=== PATIENT | male | born 1930 | race Caucasian/White ===

== ENCOUNTER 2017-11-20 08:09 | Emergency (ER) | payer OTHER ==
[~2017-11-20] VITALS: Ht 175.3 cm; Wt 86.2 kg
--- NOTE | ~2017-11-20 | EKG ---
[place] [address] [facility] [place] [address] ELECTROCARDIOGRAM REPORT Name: KEREN TAM [id number] Admission: 11/20/17 Attend Phys: Discharge: 11/20/17 Date of : [birth year] Report #: [id number] THIS REPORT FOR: //name// [facility] ED Test Date: 2017-11-20 Test Time: 08:45:54 Pat Name: KEREN TAM Department: Room: Gender: M Front Desk Admin: [facility] : 1930 Requested By: Rina Beckham Order Number: [id number] MD: Pola Gore Measurements Intervals [place] Rate: 77 P: 36 ID: 235 QRS: -10 QRSD: 92 T: 32 QT: 402 QTc: 455 Interpretive Statements Sinus rhythm Atrial premature complex Prolonged ID interval Compared to ECG 06/12/1990 06:57:00 Atrial premature complex(es) now present First degree AV block now present Electronically Signed On 11-20-2017 15:14:45 [employer]IN[employer] by Pola Gore [email or web address] <ELECTRONICALLY SIGNED> By: Pola Gore MD 11/20/17 1514 Pola Gore MD /ANKIT
[~2017-11-20 08:09] MED LIST: AUGMENTIN 875875 M1 PO; CARBIDOPA-LEVO1 EAC2 PO; CARBIDOPA-LEVO1 EAC3 PO; CARBIDOPA-LEVO1 EAC6 PO; CARBIDOPA-LEVO1 EAC9 PO; CYMBALTA60 MG; CYMBALTA60 MG PO; DOXYCYCLINE 10100 M1 PO; MAVIK2 MG PO; MIRALAX255 GM; MIRAPEX0.75 MG PO; VITAMIN B-12100 MCG PO; XANAX 0.5 MG0.5 M1 PO
[2017-11-20 08:28] LABS: ABSOLUTE NEUTROPHILS 4.1 thou/uL (1.4-8.2); BASOPHILS 0.8 % (0.0-2.0); EOSINOPHILS 0.9 % (0.0-3.0); HEMATOCRIT 42.9 % (42.0-52.0); HEMOGLOBIN 14.6 gm/dL (14.0-18.0); LYMPHOCYTES 20.2 % (24.0-44.0); MCHC 34.1 g/dL (28.0-37.0); MONOCYTES 11.6 % (1.0-8.0); PLATELET COUNT 232 thou/uL (150-400); POLYS 66.5 % (36.0-66.0); RBC 4.71 mil/uL (4.50-6.00); RDW 13.7 % (10.5-14.5); WBC 6.2 thou/uL (4.0-11.0)
[2017-11-20 08:37] LABS: ANION GAP 8 mmol/L (7-16); BUN 14 mg/dL (7-18); CHLORIDE 104 mmol/L (98-107); CO2 30 mmol/L (21-32); CREATININE 0.8 mg/dL (0.7-1.3); GLUCOSE 102 mg/dL (74-106); POTASSIUM 3.8 mmol/L (3.5-5.1); SODIUM 142 mmol/L (136-145)
[2017-11-20 08:46] LABS: TROPONIN-I < 0.04 ng/mL (<0.06)
[2017-11-20 09:11] LABS: URINE BILIRUBIN NEGATIVE (Negative); URINE BLOOD NEGATIVE (Negative); URINE CLARITY CLEAR; URINE COLOR YELLOW; URINE GLUCOSE-RANDOM* NEGATIVE (Negative); URINE KETONES TRACE (Negative); URINE LEUKOCYTES NEGATIVE (Negative); URINE NITRITE NEGATIVE (Negative); URINE PROTEIN (DIPSTICK) TRACE (Negative); URINE UROBILINOGEN 0.2 E.U./dl (0.2-1.0)
[2017-11-20] MEDS ORDERED: FLONASE 0.05%50 MCG NASAL (09:33)
[2017-11-20 10:50] VITALS: BP 166/89
[2018-04-23] MEDS ORDERED: LEVAQUIN 500 M500 M3 PO (17:58)
[2018-04-23] MEDS ORDERED: TYLENOL325 MG PO (17:58)
[2018-04-23] MEDS ORDERED: ENOXAPARIN40 MG/0.1 SUBQ (17:58)
[2018-04-23] MEDS ORDERED: IPRAT-ALBUT 0.5-3 ML INH (17:58)
[2018-04-23] MEDS ORDERED: MUCINEX600 MG PO (17:58)
[2018-04-24] MEDS ORDERED: NUPLAZID17 MG PO (15:49)
[2018-04-29] MEDS ORDERED: SINEMET 25-1001 EAC1 PO ×2 (17:28→17:29)
[2018-04-29] MEDS ORDERED: MIRAPEX 0.250.25 M1 PO (17:59)
[2018-04-29] MEDS ORDERED: LINZESS290 MCG PO (18:05)
[2018-04-29] MEDS ORDERED: SERTRALINE HCL50 MG (18:05)
[2018-04-29] MEDS ORDERED: NEXIUM40 MG PO ×2 (18:13→18:30)
[2018-04-29] MEDS ORDERED: SEROQUEL 25 MG25 M1 PO ×2 (18:16→18:33)
[2018-04-29] MEDS ORDERED: SENNA8.6 MG PO (18:31)
[2018-04-29] MEDS ORDERED: ONDANSETRON HCL4 M2 PO (18:32)
[2018-05-10] MEDS ORDERED: CARBIDOPA-LEVO1 EAC9 PO (08:42)
[2018-05-10] MEDS ORDERED: SINEMET CR 25-1 EACH PO (08:42)
[2018-05-10] MEDS ORDERED: FLONASE 0.05%50 MCG NASAL (08:42)
[2018-05-10] MEDS ORDERED: VENTOLIN HFA 1818 GM INH (08:42)
[2018-05-10] MEDS ORDERED: SEROQUEL 25 MG25 M1 PO (08:42)
[2018-05-10] MEDS ORDERED: COLACE100 MG PO (08:42)
== END 2017-11-20 10:50 | disposition home or self-care (01) ==
LOC: ER 08:09
PROVIDERS: Emergency Medicine
DX: J34.89 Other specified disorders of nose and nasal sinuses (principal); R68.2 Dry mouth, unspecified; I10 Essential (primary) hypertension; G20 Parkinson's disease; N40.0 Benign prostatic hyperplasia without lower urinary tract symptoms

== ENCOUNTER 2017-12-13 09:57 | Inpatient (IN) | payer OTHER ==
[~2017-12-13] VITALS: Ht 180.3 cm; Wt 79.4 kg
--- NOTE | ~2017-12-13 | HC ---
[facility] [place] [address] CONSULTATION Name: ANELVELIZ HECTOR Room #: 430-P [facility] IN M.R.#: [id number] Admission: 12/13/17 Attend Phys: Geoff Perez MD Discharge: 12/14/17 Date of : [birth year] Report #: [id number] THIS REPORT FOR: //name// CC: Geoff Roa DATE OF SERVICE: 12/13/2017 HISTORY OF PRESENT ILLNESS: This is an 87-year-old male patient who is not able to provide any reliable history. This patient has Parkinson's disease. He has seen Dr. Villagran at [facility]. They have managed his Parkinson disease. They recently referred this patient to Dr. Nieto who is a movement disorder specialist at [facility]. They did Botox shot for excessive salivation. The patient has developed delusions where he stands sometime multiple hours thinking something is wrong with his nose. He has done multiple procedures in that regard. He also developed some hallucination. He was given some medication which has made him somewhat better. Family did notice that much, but on examination, it looks like this patient has pretty profound memory deficit. REVIEW OF SYSTEMS: Positive for Parkinson disease. He does have a history of hypertension and BPH. He has developed what looks like pretty significant hallucinations. This was his relevant 14-point review of system. PAST MEDICAL HISTORY: Positive for Parkinson disease. FAMILY HISTORY: Negative for early age stroke. SOCIAL HISTORY: Does not smoke or drink any alcohol. PHYSICAL EXAMINATION: Indicate he does not know what month it is. He does not know what day it is. He does not know what hospital he is in. His speech looks okay, but memory and fund of knowledge is very poor. Cranial nerve examination 2-12 is unremarkable. He does have some stiffness in all 4 extremities. His neuromuscular examination is symmetrical. There is no carotid bruit or meningeal sign. He is a reasonably well-developed individual who does not have any dysmorphic features of eyes, ears and face and his pulses are difficult to feel. He has no edema, cyanosis or jaundice. Cardiac examination is unremarkable. His blood pressure is 170/83, respirations 18, pulse is 72, temperature 98.4. His white count is normal at 6.3. He did have a CT scan, which was unremarkable. 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 I suspect his delusion [address] [place] [address] CONSULTATION Name: KEREN TAM [facility] Room #: 430-P [facility] IN M.R.#: [id number] Admission: 12/13/17 Attend Phys: Geoff Perez MD Discharge: 12/14/17 Date of : [birth year] Report #: [id number] and hallucinations are because of that. RECOMMENDATIONS: 1. I will suggest a psychiatric consult. 2. I discussed with the family that the medication they will use to control his hallucination and delusion will make his Parkinson worse. He appeared to be in pretty advanced stage of dementia clinically. I agree with the physical therapy and occupational therapy and we will see how he does with that. Thank you very much for allowing me to share in the management of this patient and if you have any questions, please feel free to contact me. <ELECTRONICALLY SIGNED> By: Gerald Nicole MD 12/18/17 0721 [id number] Gerald Nicole MD /nt
[~2017-12-13 09:57] MED LIST changes: +FLONASE 0.05%50 MCG NASAL
[2017-12-13 09:58] VITALS: BP 171/89
[2017-12-13 10:13] LABS: HEMATOCRIT 43.8 % (42.0-52.0); HEMOGLOBIN 14.7 gm/dL (14.0-18.0); MCH 30.6 pg (26.0-34.0); MCHC 33.5 g/dL (28.0-37.0); MCV 91.2 fL (80.0-100.0); RBC 4.8 mil/uL (4.50-6.00); RDW 13.9 % (10.5-14.5); WBC 6.3 thou/uL (4.0-11.0)
[2017-12-13 10:19] LABS: CALCIUM 9.4 mg/dL (8.5-10.1); CREATININE 0.8 mg/dL (0.7-1.3); POTASSIUM 4.1 mmol/L (3.5-5.1)
[2017-12-13] MEDS ORDERED: LINZESS290 MCG PO (10:33)
[2017-12-13] MEDS ORDERED: SERTRALINE HCL50 MG PO (10:34)
[2017-12-13] MEDS ORDERED: NEXIUM40 MG PO (10:34)
[2017-12-13] MEDS ORDERED: ENULOSE10 GM/15 M PO (10:35)
[2017-12-13] MEDS ORDERED: SENOKOT-S1 TA2 PO (10:35)
[2017-12-13] MEDS ORDERED: NUPLAZID17 MG PO (10:37)
[2017-12-13] MEDS ORDERED: SCOPOLAMINE1 EACH TRANSDERM (10:38)
[2017-12-13] MEDS ORDERED: SEROQUEL 25 MG25 M1 PO (10:39)
[2017-12-13 11:09] LABS: URINE BILIRUBIN NEGATIVE (Negative); URINE BLOOD NEGATIVE (Negative); URINE CLARITY CLEAR; URINE COLOR YELLOW; URINE GLUCOSE-RANDOM* NEGATIVE (Negative); URINE KETONES TRACE (Negative); URINE LEUKOCYTES-REFLEX NEGATIVE (Negative); URINE NITRITE-REFLEX NEGATIVE (Negative); URINE PROTEIN (DIPSTICK) NEGATIVE (Negative); URINE UROBILINOGEN 0.2 E.U./dl (0.2-1.0)
[2017-12-13 11:18] LABS: AMP/METHAMP Negative (Negative); BARBITURATES Negative (Negative); BENZODIAZEPINES Negative (Negative); COCAINE Negative (Negative); METHADONE Negative (Negative); OPIATES Negative (Negative); PCP Negative (Negative)
[2017-12-13 13:52] VITALS: BP 186/93
[2017-12-13 16:00] VITALS: BP 191/86
[2017-12-13 19:20] VITALS: BP 170/83
[2017-12-13 20:18] LABS: TSH 3.963 uIU/mL (0.358-3.740)
[2017-12-14 05:27] VITALS: BP 127/70
[2017-12-14 07:43] VITALS: BP 142/75
[2017-12-14 09:30] VITALS: BP 142/75
[2017-12-14] MEDS ORDERED: SERTRALINE HCL50 MG PO (14:47)
[2017-12-14] MEDS ORDERED: SEROQUEL 25 MG25 M1 PO (14:48)
[2017-12-14] MEDS ORDERED: CARBIDOPA-LEVO1 EAC9 PO (14:49)
[2017-12-14] MEDS ORDERED: B12INJ PO (14:49)
[2017-12-14 15:20] VITALS: BP 132/48
[2018-04-23] MEDS ORDERED: MUCINEX600 MG PO (17:58)
[2018-04-23] MEDS ORDERED: LEVAQUIN 500 M500 M3 PO (17:58)
[2018-04-23] MEDS ORDERED: ENOXAPARIN40 MG/0.1 SUBQ (17:58)
[2018-04-23] MEDS ORDERED: TYLENOL325 MG PO (17:58)
[2018-04-23] MEDS ORDERED: IPRAT-ALBUT 0.5-3 ML INH (17:58)
[2018-04-24] MEDS ORDERED: NUPLAZID17 MG PO (15:49)
[2018-04-29] MEDS ORDERED: SINEMET 25-1001 EAC1 PO ×2 (17:28→17:29)
[2018-04-29] MEDS ORDERED: MIRAPEX 0.250.25 M1 PO (17:59)
[2018-04-29] MEDS ORDERED: LINZESS290 MCG PO (18:05)
[2018-04-29] MEDS ORDERED: SERTRALINE HCL50 MG (18:05)
[2018-04-29] MEDS ORDERED: NEXIUM40 MG PO ×2 (18:13→18:30)
[2018-04-29] MEDS ORDERED: SEROQUEL 25 MG25 M1 PO ×2 (18:16→18:33)
[2018-04-29] MEDS ORDERED: SENNA8.6 MG PO (18:31)
[2018-04-29] MEDS ORDERED: ONDANSETRON HCL4 M2 PO (18:32)
[2018-05-10] MEDS ORDERED: COLACE100 MG PO (08:42)
[2018-05-10] MEDS ORDERED: SEROQUEL 25 MG25 M1 PO (08:42)
[2018-05-10] MEDS ORDERED: VENTOLIN HFA 1818 GM INH (08:42)
[2018-05-10] MEDS ORDERED: CARBIDOPA-LEVO1 EAC9 PO (08:42)
[2018-05-10] MEDS ORDERED: FLONASE 0.05%50 MCG NASAL (08:42)
[2018-05-10] MEDS ORDERED: SINEMET CR 25-1 EACH PO (08:42)
== END 2017-12-14 16:38 | DRG 71 ==
LOC: ER 09:57 → 4E 11:46 → EROBS 11:46 → 4E 15:34
PROVIDERS: Emergency Medicine; Psychiatry & Neurology Neuromuscular Medicine
DX: G93.40 Encephalopathy, unspecified (principal); R44.3 Hallucinations, unspecified; I10 Essential (primary) hypertension; G20 Parkinson's disease; N40.0 Benign prostatic hyperplasia without lower urinary tract symptoms; R68.2 Dry mouth, unspecified; F02.80 Dementia in other diseases classified elsewhere, unspecified severity, without behavioral disturbance, psychotic disturbance, mood disturbance, and anxiety; Z79.899 Other long term (current) drug therapy
CPT/HCPCS: 10084

== ENCOUNTER 2018-02-07 06:55 | Emergency (ER) | payer OTHER ==
[~2018-02-07] VITALS: Ht 180.3 cm; Wt 87.5 kg
--- NOTE | ~2018-02-07 | EKG ---
[place] [address] [facility] [place] [address] ELECTROCARDIOGRAM REPORT Name: KEREN ATM [id number] Admission: 02/07/18 Attend Phys: Discharge: Date of : [birth year] Report #: [id number] THIS REPORT FOR: //name// [facility] ED Test Date: 2018-02-07 Test Time: 07:26:44 Pat Name: KEREN TAM Department: Room: Gender: Information Services Tech: aj : 1930 Requested By: Lev Powell Order Number: [id number] MD: Pola Gore Measurements Intervals [place] Rate: 78 P: 30 MA: 200 QRS: -11 QRSD: 86 T: 38 QT: 381 QTc: 434 Interpretive Statements Sinus rhythm Compared to ECG 11/20/2017 08:45:54 Atrial premature complex(es) no longer present First degree AV block no longer present Electronically Signed On 02-07-2018 8:14:45 CDT by Pola Gore [email or web address] <ELECTRONICALLY SIGNED> By: Pola Gore MD 02/07/1814 5 5 Pola Gore MD /ANKIT
[~2018-02-07 06:55] MED LIST changes: +B12INJ PO; +ENULOSE10 GM/15 M PO; +LINZESS290 MCG PO; +NEXIUM40 MG PO; +NUPLAZID17 MG PO; +SCOPOLAMINE1 EACH TRANSDERM; +SENOKOT-S1 TA2 PO; +SEROQUEL 25 MG25 M1 PO; +SERTRALINE HCL50 MG PO
[2018-02-07 07:29] LABS: ABSOLUTE NEUTROPHILS 3.8 thou/uL (1.4-8.2); BASOPHILS 0.7 % (0.0-2.0); EOSINOPHILS 1.6 % (0.0-3.0); HEMATOCRIT 42.8 % (42.0-52.0); HEMOGLOBIN 14.1 gm/dL (14.0-18.0); LYMPHOCYTES 22.5 % (24.0-44.0); MCHC 32.9 g/dL (28.0-37.0); MCV 91.4 fL (80.0-100.0); MONOCYTES 10.5 % (1.0-8.0); PLATELET COUNT 239 thou/uL (150-400); POLYS 64.7 % (36.0-66.0); RBC 4.69 mil/uL (4.50-6.00); RDW 14.2 % (10.5-14.5); WBC 5.9 thou/uL (4.0-11.0)
[2018-02-07 07:35] LABS: ANION GAP 7 mmol/L (7-16); BUN 10 mg/dL (7-18); CALCIUM 9.2 mg/dL (8.5-10.1); CHLORIDE 106 mmol/L (98-107); CO2 28 mmol/L (21-32); CREATININE 0.7 mg/dL (0.7-1.3); GLUCOSE 102 mg/dL (74-106); POTASSIUM 3.9 mmol/L (3.5-5.1); SODIUM 141 mmol/L (136-145)
[2018-02-07] MEDS ORDERED: SEROQUEL 25 MG25 M1 PO (07:35)
[2018-02-07 07:44] LABS: TROPONIN-I < 0.04 ng/mL (<0.06)
== END 2018-02-07 09:25 | disposition home or self-care (01) ==
LOC: ER 06:55
PROVIDERS: Emergency Medicine
DX: R06.02 Shortness of breath (principal); K59.00 Constipation, unspecified; I10 Essential (primary) hypertension; N40.0 Benign prostatic hyperplasia without lower urinary tract symptoms